=== PATIENT | female | born 1985 | race Caucasian/White ===

== ENCOUNTER 2017-07-24 19:09 | Emergency (ER) | payer OTHER ==
[~2017-07-24] VITALS: Ht 152.4 cm; Wt 52.2 kg
[2017-07-24 19:20] VITALS: BP 145/92
--- NOTE | 2017-07-24 19:30 | NUR ---
TO ER OF3
--- NOTE | 2017-07-24 19:35 | NUR ---
CAME IN W C/O NEEDLESTICK TO RT HAND FROM WORK. PT REPORTS SHE WORKS AT [facility] [employer] AND WAS DEMONSTRATING HOW TO USE LANCETS AND WAS STUCK WITH A USED LANCET. RT HAND NOTED WITH SKIN INTACT AND DRY. PMH: HTN, ASTHMA
--- NOTE | 2017-07-24 20:35 | NUR ---
Patient discharged with v/s stable. Written and verbal after care instructions given and explained. Patient verbalized understanding. Ambulatory with steady gait. All questions addressed prior to discharge. Advised to follow up with PMD.
[2017-07-24 20:55] VITALS: BP 118/76
[2017-07-28 13:18] LABS: HEPATITIS C VIRUS ANTIBODY 0.2 s/co (0.0 - 0.9)
[2017-07-28 13:19] LABS: HEPATITIS B CORE AB TOTAL NEGATIVE (NEGATIVE)
[2017-07-28 13:20] LABS: HEPATITIS B SURFACE ANTIGEN NEGATIVE (NEGATIVE)
[2017-07-28 13:27] LABS: HEPATITIS B SURFACE ANTIBODY REACTIVE (NONREACTIVE)
--- NOTE | 2017-07-28 14:40 | NUR ---
ADDENDUM: LEFT MESSAGE TO WILLIAN, INFECTION CONTROL TO CALL ME BACK AND WILL LEAVE LAB. RESULTS COPY TO HER OFFICE
--- NOTE | 2017-07-28 14:40 | NUR ---
ADDENDUM: RECIEVED LAB. RESULTS FOR NEEDLE STICK SCREEN PANEL: HEPATITIS B SURFACE ANTIBODY, REACTIVE.
== END 2017-07-24 20:35 | disposition home or self-care (01) ==
LOC: MED 19:09
DX: Z77.21 Contact with and (suspected) exposure to potentially hazardous body fluids (principal); J45.909 Unspecified asthma, uncomplicated; I10 Essential (primary) hypertension
CPT/HCPCS: 36415; 86702; 86704; 86706; 86803; 87340; 90471; 90715; 99284